=== PATIENT | female | born 1995 | race Hispanic/Latino ===

== ENCOUNTER 2018-03-19 10:26 | Emergency (ER) | payer OTHER, BC ==
[2018-03-19 10:34] VITALS: O2SAT 98; BMI 21.6
[2018-03-19] MEDS ORDERED: Tdap Vaccine 0.5 ml Vial (10-64 yrs) IM ONE ×2 (11:08→11:39)
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
--- NOTE | 2018-03-19 11:59 | RAD ---
PROCEDURE: HISTORY: injury COMPARISON: TECHNIQUE: FINDINGS: IMPRESSION:
[2018-03-19 12:44] VITALS: BP 126/78; PULSE 78; RESP 18; TEMP 97.6
--- NOTE | 2018-03-19 13:15 | RAD ---
PROCEDURE: Right Ankle Radiographs. HISTORY: injury COMPARISON: None FINDINGS: BONES: Normal. No fracture. JOINTS: Normal. No osteoarthritis. Ankle mortise maintained. Talar dome intact SOFT TISSUES: Normal. OTHER FINDINGS: None. IMPRESSION: Normal right ankle radiographs.
--- NOTE | 2018-03-19 13:16 | RAD ---
HISTORY: ankle injury COMPARISON: No prior FINDINGS: BONES: Normal. No fracture. JOINTS: Normal. No osteoarthritis. SOFT TISSUE: Normal. OTHER FINDINGS: None . IMPRESSION: Normal Bone Xray.
--- NOTE | 2018-03-19 13:16 | RAD ---
PROCEDURE: Right Knee Radiographs. HISTORY: knee injury COMPARISON: None. FINDINGS: BONES: Normal. No fracture. JOINTS: Normal. No osteoarthritis. JOINT EFFUSION: None. OTHER FINDINGS: None. IMPRESSION: Normal radiographs of the right knee.
--- NOTE | 2018-03-19 13:17 | RAD ---
PROCEDURE: Left Hand Radiographs. HISTORY: hand injury COMPARISON: None. FINDINGS: BONES: Normal. No fracture. JOINTS: Normal. No osteoarthritic changes. SOFT TISSUES: Normal. OTHER FINDINGS: None. IMPRESSION: Normal left hand radiographs.
== END 2018-03-19 12:45 | disposition home or self-care (01) ==
LOC: H.ER 10:26
DX: S99.911A Unspecified injury of right ankle, initial encounter (principal); V03.00XA Pedestrian on foot injured in collision with car, pick-up truck or van in nontraffic accident, initial encounter; Y92.410 Unspecified street and highway as the place of occurrence of the external cause; Z88.0 Allergy status to penicillin